=== PATIENT | male | born 1955 | race Caucasian/White ===

== ENCOUNTER → 2018-05-20 09:16 | Outpatient (CLI) | payer BC, SELFPAY ==
[2018-05-20 11:12] LABS: Alanine Aminotransferase 36 IU/L (21-72); Albumin 4.2 g/dL (3.5-5.0); Albumin Globulin Ratio 1.4 (1.0-2.8); Alkaline Phosphatase 77 U/L (38-126); Aspartate Aminotransferase 35 IU/L (17-59); BUN Creatinine Ratio 19.2 (6-22); Bilirubin Total 0.9 mg/dL (0.2-1.3); Blood Urea Nitrogen 25 mg/dL (9-20); Calcium 9.3 mg/dL (8.4-10.2); Carbon Dioxide 29 mmol/L (22-32); Chloride 100 mmol/L (98-107); Estimated Glomerular Filt Rate 55.9 mL/min (>60); Globulin 2.9 g/dL (1.7-4.1); Glucose 110 mg/dL (80-110); HEMOLYSIS < 15 (0-50); Potassium 3.9 mmol/L (3.4-5.1); Sodium 138 mmol/L (137-145); Total Protein 7.1 g/dL (6.3-8.2)
[2018-05-23 09:45] LABS: Lipoprofile NMR SEE SEPARATE REPORTS
== END ==
PROVIDERS: PCP Family Medicine; Visit Provider Specialist
DX: E78.2 Mixed hyperlipidemia (principal)
CPT/HCPCS: 36415; 80053; 83704

== ENCOUNTER → 2018-05-22 12:31 | Outpatient (CLI) | payer BC, SELFPAY ==
--- NOTE | 2018-05-22 | DI.ECHO.S_ITS ---
[facility]---------[facility] +---------+ : : [address] : : : : [id number] : : : : Phone: [phone]+ Echocardiogram Report + + :Name: KATHIE RILEY Study Date: 05/22/2018 Height: 66 in : :[facility] Weight: 196 lb : : Gender: Male BSA: 2.0 m2 : :: 1955 Age: 63 yrs BP: 110/82 mmHg: :Reason For Study: Aortic valve replacement - bioprosthetic : :Ordering Physician: Emre : :Jaun Performed By: Domi Srivastava : :Referring: Jayla Ma : + + Interpretation Summary 1) Normal left ventricular thickness, size, and systolic function (EF 60-65%). 2) Grossly, normal right ventricular size and function. 3) There is a bioprosthetic aortic valve that is well-seated and opens well. Mean gradient is 21.5mmHg, mildly higher that 15mmHg noted on 2017 echo. 4) Compared to the Echo done 09/26/2017, mean gradient across the bioprosthetic aortic valve is mildly higher but still acceptable for this valve. Procedure: A two-dimensional transthoracic echocardiogram with color flow and Doppler was performed. The study quality was technically adequate. Comparison is made with the echocardiogram of 09-26-17. The patient was in normal sinus rhythm during the exam. Left Ventricle: The left ventricle is normal in size. Proximal septal thickening is noted. The ejection fraction is estimated to be 60-65%. Left ventricular systolic function is normal. Septal motion is consistent with post-operative state. Assessment of diastolic parameters indicates normal left ventricular diastolic function and normal filling pressures. Right Ventricle: The right ventricle grossly appears normal in size with probable normal systolic function. Atria: The left atrial size is normal. Right atrial size is normal. The interatrial septum is intact with no evidence for an atrial septal defect. Mitral Valve: The mitral valve is grossly normal. There is no mitral regurgitation noted. Aortic Valve: There is a porcine aortic valve. The prosthetic aortic valve is well-seated. Mean gradient is 23mmHg. The prosthetic aortic valve appears to open well. There is mild aortic regurgitation. Tricuspid Valve: The tricuspid valve is normal in structure but is abnormal in function. There is trace tricuspid regurgitation. The right ventricular systolic pressure is estimated at 24 mmHg assuming a right atrial pressure of 3 mm Hg. Pulmonic Valve: The pulmonic valve is not well seen, but is grossly normal. There is no pulmonic valvular regurgitation. Great Vessels: The aortic root is normal size. The ascending aorta is mildly enlarged. The aortic arch is at the upper limits of normal in size. The IVC is of normal diameter and collapses greater than 50% with a sniff. This suggests a low right atrial pressure of 3 mm Hg. Pericardium/ Pleura There is no pericardial effusion. There is no pleural effusion. MMode/2D Measurements & Calculations LVIDd: 4.6 cm LVOT diam: 1.9 cm LVIDs: 3.3 cm Ao root diam: 3.0 cm FS: 29.9 % Aortic Jxn: 2.1 cm EPSS: 0.30 cm asc Aorta Diam: 3.7 cm IVSd: 1.0 cm Ao Arch Diam (Prox Trans): 3.0 cm LVPWd: 0.93 cm LV hernández. diameter/BSA (cm/m^2): 2.3 LV sys. diameter/BSA (cm/m^2): 1.6 LA dimension: 3.9 cm RA long axis: 4.7 cm LA A2 area: 14.9 cm2 RA area: 15.3 cm2 LA A4 area: 15.8 cm2 RA vol: 43.0 ml LA length (vol): 5.1 cm RA : 21.7 ml/m2 LA vol: 39.2 ml IVC diam: 1.4 cm LA vol index: 19.8 ml/m2 RVDd major: 5.4 cm RVD1 (basal): 3.5 cm RVD2 (mid): 2.8 cm Doppler Measurements & Calculations Ao V2 max: 309.1 cm/sec LVOT Max Wali: 107.7 cm/sec Ao V2 mean: 223.8 cm/sec LV V1 max P.6 mmHg Ao max P.2 mmHg LV V1 VTI: 21.3 cm Ao mean P.5 mmHg ERFEN(I,D): 0.98 cm2 Ao V2 VTI: 60.8 cm EFREN(V,D): 0.98 cm2 sev ratio: 0.35 EFREN indexed to BSA (cm^2/m^2): 0.49 MV E max wali: 69.8 cm/sec TR max wali: 228.6 cm/sec MV A max wali: 80.8 cm/sec TR max P.9 mmHg MV E/A: 0.86 PA V2 max: 91.0 cm/sec Med Peak E' Wali: 6.0 cm/sec PA V2 mean: 60.9 cm/sec E/E' med: 11.6 PA mean P.7 mmHg Lat Peak E' Wali: 7.7 cm/sec PA Accel Time: 0.10 sec E/E' lat: 9.1 E/e' average: 10.4 MV dec time: 0.20 sec MV P1/2t: 59.2 msec MV P1/2t max wali: 69.5 cm/sec MVA(P1/2t): 3.7 cm2 Reading Physician:12:28 PM
== END ==
PROVIDERS: PCP Family Medicine; Visit Provider Specialist
DX: I35.1 Nonrheumatic aortic (valve) insufficiency (principal); Z95.2 Presence of prosthetic heart valve
CPT/HCPCS: 93306

== ENCOUNTER 2018-09-11 13:05 | Emergency (ER) | payer BC, SELFPAY ==
[2018-09-11 13:09] VITALS: BP 156/101; PULSE 82; RESP 14; TEMP 36.4; O2SAT 99
--- NOTE | 2018-09-11 13:17 | DI.US.S_ITS ---
PROCEDURE: US PERIPH VENOUS LOW EXTREM LT INDICATIONS: Pain Left Calf after surgery, Pt in ED wait- Can go to US TECHNIQUE: Real-time imaging, as well as color and pulse Doppler interrogation, were performed of the lower extremity deep veins from the inguinal ligament to the popliteal fossa. COMPARISON: None. FINDINGS: The deep veins are normally compressible, and free of intraluminal thrombus. Color and pulse Doppler demonstrate normal phasic intraluminal flow. There is normal augmentation response to distal compression maneuver. IMPRESSION: No visualized deep venous thrombosis. Dictated by: Melissa Ryder M.D. on 09/11/2018 at 14:53 Approved by: Melissa Ryder M.D. on 09/11/2018 at 14:53
[2018-09-11 13:46] VITALS: PULSE 70
--- NOTE | 2018-09-11 13:47 | ED.EXTPRO ---
HPI - Extremity Problem General Chief complaint: Extremity Problem,Nontraumatic Stated complaint: signs of clotting in calf after surgery Time Seen by Provider: 09/11/18 13:47 Source: patient Mode of arrival: ambulatory Limitations: no limitations History of Present Illness HPI Narrative: 63-year-old male who underwent a left medial compartment hemiarthroplasty of the left knee earlier this week at an outside facility. States that since then he has had swelling to his left calf muscle. No chest pain. No fevers. Has had some cramping left calf muscle. Patient has been ambulatory with crutches. Weightbearing as tolerated. Here for evaluation of possible DVT left lower extremity. Related Data Home Medications Medication Instructions Recorded Confirmed lisinopril 10 mg PO QDAY #0 02/19/17 carvedilol [Coreg] BID #0 09/17/17 hydrochlorothiazide 12.5 mg PO QDAY #0 09/17/17 Previous Rx's Medication Instructions Recorded tamsulosin [Flomax] 0.4 mg PO QDAY 5 Days #0 cap 09/17/17 ciprofloxacin HCl [Cipro] 500 mg PO BID #20 tab 02/03/18 metronidazole [Flagyl] 500 mg PO BID #10 tab 02/03/18 Allergies Allergy/AdvReac Type Severity Reaction Status Date / Time No Known Drug Allergies Allergy Verified 09/11/18 13:13 Review of Systems Constitutional Denies fever(s) Cardiovascular Denies chest pain and Denies dyspnea Respiratory Denies cough and Denies dyspnea Gastrointestinal Gastrointestinal: Denies abdominal pain Musculoskeletal Reports arthralgias (Left knee), Reports joint swelling (Left knee), Reports limited range of motion and Reports stiffness (Left knee) Integumentary/Breasts Comments: Surgical incision left knee covered with cervical bandage Neurologic Comments: No numbness or tingling left lower extremity PFSH Medical History Coronary artery disease (Acute) Hyperlipidemia (Acute) Hypertension (Acute) Surgical History H/O aortic valve replacement (Acute) History of arthroplasty of knee (Acute) Hx of CABG (Acute) Social History marital status: Smoking Status: Never smoker Exam Initial Vital Signs Initial Vital Signs: Vital Signs Temperature 97.6 F 09/11/18 13:09 Pulse Rate 82 09/11/18 13:09 Respiratory Rate 14 09/11/18 13:09 Blood Pressure 156/101 H 09/11/18 13:09 Pulse Oximetry 99 09/11/18 13:09 Const General: cooperative, healthy appearing, comfortable, well developed, well groomed and No acute distress Orientation: alert, awake and oriented x3 HENMT Head: normal to inspection and normocephalic Resp Effort & Inspection: normal respiratory effort Auscultation: clear to auscultation bilaterally Cardio Rate: regular rate Rhythm: regular rhythm Pulses: dorsalis pedis present on the left Skin Other: Surgical bandage located over left anterior knee consistent with his stated history. No surrounding erythema. Neuro Other: Sensation intact to light touch left lower extremity Extrem Other: Left hip unremarkable Limited range of motion left knee consistent with stated recent surgery Left ankle left foot unremarkable Mild swelling left calf. Course Orders Ordered: ED Orders 09/11/18 13:17 US perip venous low extrem lt Stat Vital Signs - 8 hr 09/11/18 13:09 09/11/18 13:46 09/11/18 14:25 Temperature 97.6 F Pulse Rate 82 77 Pulse Rate [Left Dorsalis Pedis] 70 Respiratory Rate 14 16 Blood Pressure 156/101 H Blood Pressure [Right Arm] 122/89 Pulse Oximetry 99 91 MDM - Extremity (Nontraumatic) Imaging Data Venous US: Radiologist's impression: PROCEDURE: US PERIP VENOUS LOW EXTREM LT INDICATIONS: Pain Left Calf after surgery, Pt in ED wait- Can go to US TECHNIQUE: Real-time imaging, as well as color and pulse Doppler interrogation, were performed of the lower extremity deep veins from the inguinal ligament to the popliteal fossa. COMPARISON: None. FINDINGS: The deep veins are normally compressible, and free of intraluminal thrombus. Color and pulse Doppler demonstrate normal phasic intraluminal flow. There is normal augmentation response to distal compression maneuver. IMPRESSION: No visualized deep venous thrombosis. Dictated by: Melissa Ryder M.D. on 09/11/2018 at 14:53 Approved by: Melissa Ryder M.D. on 09/11/2018 at 14:53 [facility] Narrative Medical decision making narrative: No signs of infection. Appropriate postoperative exam. No signs of DVT. Discussed all this with the patient. He is given return precautions. His is at bedside for these discussions. They expressed understanding and agreement with plan. Discharge Plan Departure Patient Disposition: Home Clinical Impression: Edema leg Instructions: How to Use an Elastic Bandage -- Edema Activity Restrictions/Additional Instructions: We had no findings today consistent with a clot in her lower extremity. There were no signs of infection. Continue all of your postoperative instructions given to you by your operative surgeon. Return to the emergency department for any new or worsening symptoms Prescriptions: No Action lisinopril 10 MG tablet 10 mg PO QDAY Qty: 0 RF: 0 hydrochlorothiazide 12.5 MG capsule 12.5 mg PO QDAY Qty: 0 RF: 0 carvedilol [Coreg] 12.5 MG tablet BID Qty: 0 RF: 0 tamsulosin [Flomax] 0.4 MG capsule,extended release 24hr 0.4 mg PO QDAY 5 Days Qty: 0 RF: 0 metronidazole [Flagyl] 500 MG tablet 500 mg PO BID Qty: 10 RF: 0 ciprofloxacin HCl [Cipro] 500 MG tablet 500 mg PO BID Qty: 20 RF: 0
[2018-09-11 14:25] VITALS: BP 122/89; PULSE 77; RESP 16; O2SAT 91
--- NOTE | 2018-09-11 14:26 | PC.NURSE ---
waiting for pending u/s reports. denies cp, shortness of breath. onset of left calf pain yesterday, denies injury trauma. s/p left knee partial replacement 2 days ago. denies fever,chills, coughing, vomiting. distal cms intact.
== END 2018-09-11 15:20 | disposition home or self-care (01) ==
PROVIDERS: Emergency Provider Emergency Medicine; Family Provider Orthopaedic Surgery; PCP Family Medicine
DX: R60.0 Localized edema (principal)
CPT/HCPCS: 93971; 99282; 99284

== ENCOUNTER → 2018-12-02 09:01 | Outpatient (CLI) | payer BC, SELFPAY ==
[2018-12-02 11:21] LABS: Alanine Aminotransferase 42 IU/L (21-72); Albumin 4.4 g/dL (3.5-5.0); Albumin Globulin Ratio 1.4 (1.0-2.8); Alkaline Phosphatase 80 U/L (38-126); Aspartate Aminotransferase 34 IU/L (17-59); Bilirubin Total 0.7 mg/dL (0.2-1.3); Blood Urea Nitrogen 28 mg/dL (9-20); Calcium 9.5 mg/dL (8.4-10.2); Carbon Dioxide 26 mmol/L (22-32); Chloride 101 mmol/L (98-107); Estimated Glomerular Filt Rate 51.4 mL/min (>60); Globulin 3.2 g/dL (1.7-4.1); Glucose 113 mg/dL (80-110); HEMOLYSIS < 15 (0-50); Potassium 3.9 mmol/L (3.4-5.1); Sodium 138 mmol/L (137-145); Total Protein 7.6 g/dL (6.3-8.2)
[2018-12-04 09:35] LABS: Lipoprofile NMR SEE SEPARATE REPORTS
== END ==
PROVIDERS: Family Provider Orthopaedic Surgery; PCP Family Medicine; Visit Provider Specialist
DX: E78.2 Mixed hyperlipidemia (principal); I10 Essential (primary) hypertension
CPT/HCPCS: 36415; 80053; 83704; 83735

== ENCOUNTER → 2019-08-28 08:42 | Outpatient (CLI) | payer BC, SELFPAY ==
[2019-08-28 10:42] LABS: Alanine Aminotransferase 25 IU/L (<50); Albumin 4.5 g/dL (3.5-5.0); Albumin Globulin Ratio 1.8 (1.0-2.8); Alkaline Phosphatase 69 U/L (38-126); Aspartate Aminotransferase 32 IU/L (17-59); BUN Creatinine Ratio 17.1 (6-22); Blood Urea Nitrogen 24 mg/dL (9-20); Calcium 9.9 mg/dL (8.4-10.2); Carbon Dioxide 26 mmol/L (22-32); Chloride 102 mmol/L (98-107); Estimated Glomerular Filt Rate 51.2 mL/min (>60); Globulin 2.5 g/dL (1.7-4.1); Glucose 105 mg/dL (80-110); HEMOLYSIS < 15 (0-50); Potassium 4.5 mmol/L (3.4-5.1); Sodium 138 mmol/L (137-145)
[2019-09-02 14:17] LABS: Lipoprofile NMR SEE SEPARATE REPORTS
== END ==
PROVIDERS: Specialist; PCP Family Medicine; Visit Provider Physician Assistant Medical
DX: E78.2 Mixed hyperlipidemia (principal)
CPT/HCPCS: 36415; 80053; 83704

== ENCOUNTER → 2020-07-16 09:29 | Outpatient (CLI) | payer BC, SELFPAY ==
[2020-07-16 10:39] LABS: Alanine Aminotransferase 17 IU/L (<50); Albumin 4.2 g/dL (3.5-5.0); Albumin Globulin Ratio 1.4 (1.0-2.8); Alkaline Phosphatase 69 U/L (38-126); Aspartate Aminotransferase 25 IU/L (17-59); BUN Creatinine Ratio 16.5 (6-22); Bilirubin Total 1.2 mg/dL (0.2-1.3); Blood Urea Nitrogen 22 mg/dL (9-20); Calcium 9.6 mg/dL (8.4-10.2); Carbon Dioxide 29 mmol/L (22-32); Chloride 104 mmol/L (98-107); Estimated Glomerular Filt Rate 54.1 mL/min (>60); Globulin 3.1 g/dL (1.7-4.1); Glucose 102 mg/dL (80-110); HEMOLYSIS < 15 (0-50); Magnesium 2.3 mg/dL (1.6-2.3); Potassium 4.4 mmol/L (3.4-5.1); Sodium 140 mmol/L (137-145); Total Protein 7.3 g/dL (6.3-8.2)
[2020-08-03 10:50] LABS: Cholesterol, Total 153; HDL-Cholesterol 47; HDL-Particle (Total) 27.9; LDL Particle 1016; LDL Size 20.7; LDL-Cholsterol 77; LP-IR Score 49; Small LDL- Particle 359; Triglycerides 169
== END ==
PROVIDERS: PCP Family Medicine; Referring Provider Specialist; Visit Provider Specialist
DX: I10 Essential (primary) hypertension (principal); E78.2 Mixed hyperlipidemia
CPT/HCPCS: 36415; 80053; 80061; 83704; 83735

== ENCOUNTER → 2020-07-19 13:37 | Outpatient (CLI) | payer BC, SELFPAY ==
--- NOTE | 2020-07-19 | DI.ECHO.S_ITS ---
[facility]---------+ [facility] +---------+ : : [address] : [address] : : : : [id number] : : : : Phone: [phone]+ Echocardiogram Report + + :Name: KATHIE RILEY Study Date: 07/19/2020 Height: 66 in : :[facility] Weight: 188 lb : : Gender: Male BSA: 1.9 m2 : :: 1955 Age: 65 yrs BP: 147/102 mmHg: :Reason For Study: XENOGENIC HEART VALVE : :Ordering Physician: LY, : :TRUONG Performed By: Michaelle Jesus : :Referring: TRUONG MODI : + + Interpretation Summary Left ventricular systolic function remains normal with an estimated ejection fraction of 60 to 65% without any focal wall motion abnormality. There is borderline concentric LVH which is less prominent compared to the previous study. There is a probable relaxation abnormality which is unchanged from the previous exam. The right ventricle appears normal and unchanged. Right ventricular systolic pressure cannot be estimated but CVP is likely 3 mmHg. Both atria are normal in size and unchanged from previous. There now is a suggestion of an atrial septal defect in the area of the septum secundum which was not evident on the previous exam. There is a bioprosthetic aortic valve that appears to be functioning normally, opening widely, with normal gradients and with trivial central regurgitation that is less prominent compared to the previous exam but otherwise appears unchanged from previous study. There is no other significant valvular abnormality. The ascending aorta is mildly enlarged. Procedure: A two-dimensional transthoracic echocardiogram with color flow and Doppler was performed. The study quality was technically adequate. Comparison is made with the echocardiogram of 05/22/2018. The patient had frequent PVCs during the exam. Left Ventricle: The left ventricle is normal in size. There is borderline concentric left ventricular hypertrophy. This is less prominent compared to the previous study. The ejection fraction is estimated to be 60-65%. Septal motion is consistent with post-operative state. Diastolic parameters suggest a relaxation abnormality of the left ventricle, consistent with probable normal filling pressures. Right Ventricle: The right ventricle is normal in size and function. This is unchanged compared to the previous study. Atria: Both atria are normal in size. This is unchanged compared to the previous study. There is no Doppler evidence for an interatrial shunt. Mitral Valve: The mitral valve is normal in structure and function. There is trace mitral regurgitation. Aortic Valve: There is a bioprosthetic aortic valve. The prosthetic aortic valve appears to open well. There is probable normal prosthetic aortic valve function. The aortic valve mean gradient is 17 mmHg. The peak aortic velocity is 2.8 m/sec. There is trace aortic regurgitation. Tricuspid Valve: The tricuspid valve is normal in structure and function. There is trace tricuspid regurgitation. Pulmonary artery pressures cannot be estimated because of the lack of a measurable TR jet velocity but the IVC suggests a CVP of around 3 mmHg. Pulmonic Valve: The pulmonic valve is not well seen, but is grossly normal. There is trace pulmonic regurgitation. There is no other significant valvular heart disease. Great Vessels: The aortic root is not well visualized. The ascending aorta is mildly enlarged. This is slightly smaller compared to the previous study. The IVC is of normal diameter and collapses greater than 50% with a sniff. This suggests a low right atrial pressure of 3 mm Hg. Pericardium/ Pleura There is no pericardial effusion. There is no pleural effusion. MMode/2D Measurements & Calculations LVIDd: 5.5 cm LVOT diam: 2.0 cm LVIDs: 3.5 cm asc Aorta Diam: 3.5 cm FS: 36.0 % EPSS: 0.22 cm IVSd: 1.1 cm LVPWd: 1.0 cm LV hernández. diameter/BSA (cm/m^2): 2.8 LV sys. diameter/BSA (cm/m^2): 1.8 LA A2 area: 16.2 cm2 RA long axis: 5.0 cm LA A4 area: 16.6 cm2 RA area: 16.4 cm2 LA length (vol): 5.1 cm RA vol: 45.4 ml LA vol: 44.5 ml RA : 23.3 ml/m2 LA vol index: 22.8 ml/m2 IVC diam: 1.4 cm RVD1 (basal): 3.5 cm TAPSE: 1.8 cm Doppler Measurements & Calculations Ao V2 max: 281.9 cm/sec LVOT Max Wali: 120.6 cm/sec Ao V2 mean: 193.3 cm/sec LV V1 max P.8 mmHg Ao max P.8 mmHg LV V1 VTI: 28.5 cm Ao mean P.9 mmHg EFREN(I,D): 1.5 cm2 Ao V2 VTI: 57.4 cm EFREN(V,D): 1.3 cm2 sev ratio: 0.50 EFREN indexed to BSA (cm^2/m^2): 0.80 MV E max wali: 72.8 cm/sec PA V2 max: 60.0 cm/sec MV A max wali: 85.2 cm/sec PA V2 mean: 42.0 cm/sec MV E/A: 0.85 PA mean P.82 mmHg Med Peak E' Wali: 4.6 cm/sec PA pr(Accel): 27.6 mmHg E/E' med: 16.0 Lat Peak E' Wali: 8.4 cm/sec E/E' lat: 8.7 E/e' average: 12.3 MV dec time: 0.24 sec SV(LVOT): 88.9 ml Reading Physician:06:00 PM
== END ==
PROVIDERS: Referring Provider Specialist; Visit Provider Specialist
DX: I77.89 Other specified disorders of arteries and arterioles (principal); Z95.3 Presence of xenogenic heart valve
CPT/HCPCS: 93306

== ENCOUNTER → 2020-08-13 08:54 | Outpatient (CLI) | payer BC, SELFPAY ==
[2020-08-13 10:50] LABS: Prostate Specific Antigen 1.51 ng/mL (0.10-4.00)
== END ==
PROVIDERS: PCP Family Medicine; Referring Provider Family Medicine; Visit Provider Family Medicine
DX: N52.9 Male erectile dysfunction, unspecified (principal)
CPT/HCPCS: 36415; 84153

== ENCOUNTER → 2020-11-28 13:47 | Outpatient (CLI) | payer BC, SELFPAY ==
[2020-11-28 15:35] LABS: COVID19 -Nasal RAPID Negative (Negative)
== END ==
PROVIDERS: PCP Family Medicine; Visit Provider Physician Assistant
DX: Z01.812 Encounter for preprocedural laboratory examination (principal); Z20.822 Contact with and (suspected) exposure to COVID-19
CPT/HCPCS: 87635

== ENCOUNTER → 2021-08-14 08:52 | Outpatient (CLI) | payer MEDICARE, SELFPAY ==
[2021-08-14 10:36] LABS: Alanine Aminotransferase 26 IU/L (<50); Albumin 4.3 g/dL (3.5-5.0); Albumin Globulin Ratio 1.5 (1.0-2.8); Alkaline Phosphatase 68 U/L (38-126); Aspartate Aminotransferase 28 IU/L (17-59); BUN Creatinine Ratio 15.3 (6-22); Bilirubin Total 0.8 mg/dL (0.2-1.3); Blood Urea Nitrogen 22 mg/dL (9-20); Calcium 10.3 mg/dL (8.4-10.2); Carbon Dioxide 29 mmol/L (22-32); Chloride 102 mmol/L (98-107); Estimated Glomerular Filt Rate 49.2 mL/min (>60); Globulin 2.9 g/dL (1.7-4.1); Glucose 113 mg/dL (80-110); HEMOLYSIS < 15 (0-50); Potassium 4.5 mmol/L (3.4-5.1); Sodium 140 mmol/L (137-145); Total Protein 7.2 g/dL (6.3-8.2)
[2021-08-14 11:20] LABS: Thyroid Stimulating Hormone 2.02 uIU/mL (0.47-4.68)
[2021-08-16 08:12] LABS: Cholesterol, Total 179 mg/dL (100-199); HDL-Cholesterol 48 mg/dL (>39); HDL-Particle (Total) 32.9 umol/L (>=30.5); LDL Particle 1236 nmol/L (<1000); LDL Size 20.3 nm (>20.5); LDL-Cholsterol 88 mg/dL (0-99); LP-IR Score 81 (<=45); Small LDL- Particle 659 nmol/L (<=527); Triglycerides 260 mg/dL (0-149)
== END ==
PROVIDERS: PCP Family Medicine; Referring Provider Specialist; Visit Provider Specialist
DX: I10 Essential (primary) hypertension (principal); E78.2 Mixed hyperlipidemia
CPT/HCPCS: 36415; 80053; 80061; 83704; 83735; 84443

== ENCOUNTER → 2021-12-21 08:49 | Outpatient (CLI) | payer MEDICARE, SELFPAY ==
[2021-12-21 10:35] LABS: BUN Creatinine Ratio 15.3 (6-22); Blood Urea Nitrogen 21 mg/dL (9-20); Calcium 9.6 mg/dL (8.4-10.2); Carbon Dioxide 28 mmol/L (22-32); Chloride 104 mmol/L (98-107); Estimated Glomerular Filt Rate 52.1 mL/min (>60); Glucose 106 mg/dL (80-110); HEMOLYSIS < 15 (0-50); Potassium 4.4 mmol/L (3.4-5.1); Sodium 138 mmol/L (137-145)
[2021-12-21 11:00] LABS: Thyroid Stimulating Hormone 1.81 uIU/mL (0.47-4.68)
== END ==
PROVIDERS: PCP Family Medicine; Referring Provider Physician Assistant Medical; Visit Provider Specialist
DX: I10 Essential (primary) hypertension (principal)
CPT/HCPCS: 36415; 80048; 83735; 84443

== ENCOUNTER → 2022-03-12 07:05 | Outpatient (CLI) | payer MEDICARE, SELFPAY ==
[2022-03-12 08:21] LABS: Alanine Aminotransferase 30 IU/L (<50); Albumin 4.1 g/dL (3.5-5.0); Albumin Globulin Ratio 1.5 (1.0-2.8); Alkaline Phosphatase 64 U/L (38-126); Aspartate Aminotransferase 34 IU/L (17-59); BUN Creatinine Ratio 16.4 (6-22); Blood Urea Nitrogen 22 mg/dL (9-20); Carbon Dioxide 27 mmol/L (22-32); Chloride 106 mmol/L (98-107); Estimated Glomerular Filt Rate 59 mL/min (>60); Globulin 2.8 g/dL (1.7-4.1); Glucose 112 mg/dL (80-110); HEMOLYSIS < 15 (0-50); Magnesium 2.1 mg/dL (1.6-2.3); Potassium 4.1 mmol/L (3.4-5.1); Sodium 138 mmol/L (137-145); Total Protein 6.9 g/dL (6.3-8.2)
[2022-03-14 10:45] LABS: Cholesterol, Total 110 mg/dL (100-199); HDL-Cholesterol 40 mg/dL (>39); HDL-Particle (Total) 31.6 umol/L (>=30.5); LDL Particle 695 nmol/L (<1000); LDL Size 19.8 nm (>20.5); LDL-Cholsterol 44 mg/dL (0-99); LP-IR Score 59 (<=45); Small LDL- Particle 485 nmol/L (<=527); Triglycerides 153 mg/dL (0-149)
== END ==
PROVIDERS: PCP Family Medicine; Referring Provider Specialist; Visit Provider Specialist
DX: I49.3 Ventricular premature depolarization (principal); E78.2 Mixed hyperlipidemia
CPT/HCPCS: 36415; 80053; 80061; 83704; 83735

== ENCOUNTER → 2022-11-26 09:20 | Outpatient (CLI) | payer MEDICARE, SELFPAY ==
[2022-11-26 11:39] LABS: Alanine Aminotransferase 33 IU/L (<50); Albumin 3.9 g/dL (3.5-5.0); Albumin Globulin Ratio 1.4 (1.0-2.8); Alkaline Phosphatase 88 U/L (38-126); Aspartate Aminotransferase 31 IU/L (17-59); BUN Creatinine Ratio 18.3 (6-22); Bilirubin Total 1.1 mg/dL (0.2-1.3); Blood Urea Nitrogen 24 mg/dL (9-20); Carbon Dioxide 26 mmol/L (22-32); Chloride 102 mmol/L (98-107); Cholesterol 105 mg/dL (140-199); Estimated Glomerular Filt Rate > 60 mL/min (>60); Globulin 2.8 g/dL (1.7-4.1); Glucose 110 mg/dL (80-110); HDL Cholesterol 36 mg/dL (40-60); HEMOLYSIS < 15 (0-50); LDL Cholesterol Calculated 31 mg/dL (<100); Potassium 4.3 mmol/L (3.4-5.1); Sodium 137 mmol/L (137-145); Total Protein 6.7 g/dL (6.3-8.2); Triglycerides 190 mg/dL (35-150)
== END ==
PROVIDERS: PCP Family Medicine; Referring Provider Specialist; Visit Provider Specialist
DX: I10 Essential (primary) hypertension (principal); I25.10 Atherosclerotic heart disease of native coronary artery without angina pectoris; E78.2 Mixed hyperlipidemia
CPT/HCPCS: 36415; 80053; 80061; 83735

== ENCOUNTER 2023-04-28 17:13 | Emergency (ER) | payer MEDICARE, OTHER, SELFPAY ==
[2023-04-28 17:23] VITALS: BP 193/105; PULSE 64; RESP 16; TEMP 36.6; O2SAT 98; BMI 31.4
--- NOTE | 2023-04-28 17:47 | ED_ITS ---
HPI - Eye Problem <Nisreen Prince PA-C - Last Filed: 04/28/23 19:19> General Chief complaint: Eye Problems Stated complaint: Leye burning, bubble forming on eye T-0 Time Seen by Provider: 04/28/23 17:46 Source: patient Mode of arrival: Ambulatory History of Present Illness HPI Narrative: This is 67-year-old male with a history of seasonal allergies who presents with concern for left eye irritation itching pain and redness that began this afternoon. Patient states it began when he is watching TV he does not believe he got anything at all in his eye does not remember in the last few days getting anything in his eye either. He states it at 1st he thought it was allergies but then he and his are looking at his eye and noticed that there seemed to be some inflammation or swelling present on the nasal side of his left eye so they came in for further evaluation. Patient states he has a very mild headache for the last hour so but denies any vision change, pain with eye movements or any other symptoms whatsoever and states he has been in his usual state of health. He did try flushing his eye out about 4 times with an eye wash after his symptoms began and after the 4th time is when they noticed the inflammation. He denies any other complaints or concerns Related Data Home Medications Medication Instructions Recorded Confirmed lisinopril 10 mg tablet 10 mg PO QDAY ##0 02/19/17 08/08/20 carvedilol 12.5 mg tablet (Coreg) BID ##0 09/17/17 08/08/20 rosuvastatin 40 mg tablet (Crestor) 40 mg PO DAILY 09/17/18 08/08/20 aspirin 81 mg tablet,delayed 81 mg PO DAILY 08/08/20 08/08/20 release omeprazole 20 mg capsule,delayed 20 mg PO DAILY 08/08/20 08/08/20 release Previous Rx's Medication Instructions Recorded sildenafil 50 mg tablet (Viagra) 50 mg PO DAILY PRN sexual activity 08/08/20 #10 tabs Allergies Allergy/AdvReac Type Severity Reaction Status Date / Time No Known Drug Allergies Allergy Verified 09/17/18 15:51 Review of Systems <Nisreen Prince PA-C - Last Filed: 04/28/23 19:19> Review of Systems Narrative: See HPI Patient History <Nisreen Prince PA-C - Last Filed: 04/28/23 19:19> Medical History Coronary artery disease Coronary artery disease Erectile dysfunction Heart valve disorder Hyperlipidemia Hypertension Surgical History H/O aortic valve replacement History of arthroplasty of knee Hx of CABG Social History marital status: Smoking Status: Never smoker alcohol intake: current substance use type: former substance user and marijuana Smoking Status: Never smoker alcohol intake frequency: 0-2 drinks per day Substance Use Type: does not use Exam <Nisreen Prince PA-C - Last Filed: 04/28/23 19:19> Narrative Exam Narrative: GENERAL: [67] year old patient appears stated age. Well-developed patient, in mild distress. HEAD: Atraumatic. Normocephalic. There is no tenderness with palpation over the temples EYES: Pupils equal round and reactive. Extraocular motions intact. No scleral icterus. Left-side grossly injected, there are bilateral pinguecula more prominent on the left and slightly inflamed on the left affected eye. Ocular pressures are 14 on the right and 16 on the left. Fluorescein exam of the left eye does not reveal any corneal abrasion or fluorescein uptake. There is no tenderness or inflammation of the eyelids, no drainage noted. ENT: Nose without bleeding, purulent drainage. Throat without erythema, tonsillar hypertrophy or exudate. Airway patent. NECK: Trachea midline. Non tender CARDIOVASCULAR: Regular rate and rhythm without murmurs, gallops, or rubs. RESPIRATORY: No increased work of breathing respiratory distress EXTREMITIES: Moving all extremities normal gait NEURO: AOx3. SKIN: No rash or erythema of visible areas Initial Vital Signs Initial Vital Signs: Vital Signs Temperature 97.9 F 04/28/23 17:23 Pulse Rate 64 04/28/23 17:23 Respiratory Rate 16 04/28/23 17:23 Blood Pressure 193/105 H 04/28/23 17:23 Pulse Oximetry 98 04/28/23 17:23 Oxygen Delivery Method Room Air 04/28/23 17:23 <Mik Panchal DO - Last Filed: 04/28/23 21:08> Initial Vital Signs Initial Vital Signs: Vital Signs Temperature 97.9 F 04/28/23 17:23 Pulse Rate 64 04/28/23 17:23 Respiratory Rate 16 04/28/23 17:23 Blood Pressure 193/105 H 04/28/23 17:23 Pulse Oximetry 98 04/28/23 17:23 Oxygen Delivery Method Room Air 04/28/23 17:23 Course <Nisreen Prince PA-C - Last Filed: 04/28/23 19:19> Orders Ordered: Discontinued Medications Fluorescein Sodium (Fluorescein 1 Mg Strip) 1 mg EYE-BOTH NOW ONE Stop: 04/28/23 17:51 Last Admin: 04/28/23 17:58 Dose: 1 mg Documented By: RB Ofloxacin (Ofloxacin 0.3% Ophth Prepack) 1 bottle MISC SEEINSTR ONE Stop: 04/28/23 18:36 Last Admin: 04/28/23 18:54 Dose: 5 ml Documented By: RB Proparacaine HCl (Proparacaine 0.5% Ophth Safia) 1 drops EYE-BOTH NOW ONE Stop: 04/28/23 17:48 Last Admin: 04/28/23 17:57 Dose: 1 drop Documented By: RB Vital Signs Vital signs: Vital Signs - 8 hr 04/28/23 17:23 04/28/23 19:05 Temperature 97.9 F 97.9 F Pulse Rate 64 82 Respiratory Rate 16 17 Blood Pressure 193/105 H 178/86 H Pulse Oximetry 98 96 Oxygen Delivery Method Room Air Room Air <Mik Panchal DO - Last Filed: 04/28/23 21:08> Orders Ordered: Discontinued Medications Fluorescein Sodium (Fluorescein 1 Mg Strip) 1 mg EYE-BOTH NOW ONE Stop: 04/28/23 17:51 Last Admin: 04/28/23 17:58 Dose: 1 mg Documented By: RB Ofloxacin (Ofloxacin 0.3% Ophth Prepack) 1 bottle MISC SEEINSTR ONE Stop: 04/28/23 18:36 Last Admin: 04/28/23 18:54 Dose: 5 ml Documented By: RB Proparacaine HCl (Proparacaine 0.5% Ophth Safia) 1 drops EYE-BOTH NOW ONE Stop: 04/28/23 17:48 Last Admin: 04/28/23 17:57 Dose: 1 drop Documented By: RB Vital Signs Vital signs: Vital Signs - 8 hr 04/28/23 17:23 04/28/23 19:05 Temperature 97.9 F 97.9 F Pulse Rate 64 82 Respiratory Rate 16 17 Blood Pressure 193/105 H 178/86 H Pulse Oximetry 98 96 Oxygen Delivery Method Room Air Room Air MDM - Eye Problem <Nisreen Prince PA-C - Last Filed: 04/28/23 19:19> Differential Diagnosis Differential diagnosis: Likely conjunctivitis (Bacterial) Medical Records Attestation: I reviewed the patient's medical records. Treatment and disposition Shared decision making:: Shared decision-making was used in determining patient's plan of care and plan for outpatient follow-up. MDM Narrative Medical decision making narrative: This is a generally well-appearing 67-year-old male with a history of hypertension hyperlipidemia and CAD presents with concern for left eye pain irritation and itching. Primary symptom is eye itching and irritation came in due to concern for inflammation/swelling of the eye adjacent to the iris on the nasal side. Exam today is consistent with bilateral pinguecula which is the location of patient's concern for swelling, the left pinguecula is notably more prominent/slightly inflamed as compared to the right. Patient does have erythema and irritation of the left eye and some mild edema present of the nasal aspect, a fluorescein exam is performed after instillation of proparacaine and there is no evidence of corneal abrasion, ocular pressures are unremarkable and equal bilaterally. I have low concern for intracranial process in this patient, also low concern for arteritis as he has no tenderness over his temporal. 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 Return precautions provided, follow-up plan discussed, all questions answered. Discharge Plan Departure Patient Disposition: Home Clinical Impression: Acute bacterial conjunctivitis of left eye Activity Restrictions/Additional Instructions: *You have been diagnosed with acute bacterial conjunctivitis *What to do: *Please continue to take your regular medications as directed. [] New medication prescriptions sent to your pharmacy: [Ofloxacin eyedrops were provided for you in the emergency department you can continue to use these drops in your left eye for the next 7 days every 6 hours] [ ] New medication written as a paper prescription [X ] No new medications given *Please follow up with your primary care provider in 2-3 days, call for an appointment. Let them know you were seen in the Emergency Department and that we ask that you be seen in follow up. We will electronically transmit a record of today's note if your PCP is in our system. We did an eye exam today to evaluate your left eye pain and irritation and redness. Your ocular pressures were in the normal range, you did not have evidence of a corneal abrasion but ear exam is consistent with a bacterial conjunctivitis and I think that you should use the antibiotic eyedrops as prescribed (see above--use the antibiotic drops provided from the emergency department). Of course if you have new or worsening symptoms do not hesitate to be re-evaluated. *If you do not have a primary care provider please contact the [facility] Resource line at [phone]. They will ask some questions about your medical history and help get you set up with a doctor in the community. *Return to Emergency Department if you should have any new, worsening or concerning symptoms, such as [fever greater than 101 F, shaking chills, worsening pain, persistent vomiting or other bothersome symptoms] Prescriptions: No Action rosuvastatin [Crestor] 40 mg tablet 40 mg PO DAILY lisinopril 10 MG tablet 10 mg PO QDAY Qty: 0 carvedilol [Coreg] 12.5 MG tablet BID Qty: 0 aspirin 81 mg tablet,delayed release (DR/EC) 81 mg PO DAILY omeprazole 20 mg capsule,delayed release(DR/EC) 20 mg PO DAILY sildenafil [Viagra] 50 mg tablet 50 mg PO DAILY PRN (Reason: sexual activity) Qty: 10 2RF Rx Instructions: administer 30 minutes to 4 hours before activity Referrals: Mikey Villegas DO [Primary Care Provider] - Stand Alone Forms: Patient Portal/API <Mik Panchal DO - Last Filed: 04/28/23 21:08> Cosign ED Attending Cosignature Attestation: Dr Panchal Co-Sign Statement: I was available for consultation during this patient's emergency department visit. This chart is signed by myself for administrative purposes only. I did not have direct contact with this patient during this visit. They were seen independently by the APC.
[2023-04-28] MEDS: PROPARACAINE 0.5% OPHTH SOL 1 DROPS EYE-BOTH (17:57)
[2023-04-28] MEDS: FLUORESCEIN 1 MG STRIP EYE-BOTH (17:58)
[2023-04-28] MEDS: OFLOXACIN 0.3% OPHTH PREPACK 1 BOTTLE MISC (18:54)
[2023-04-28 19:05] VITALS: BP 178/86; PULSE 82; RESP 17; TEMP 36.6; O2SAT 96
== END 2023-04-28 19:06 | disposition home or self-care (01) ==
PROVIDERS: Emergency Provider Student in an Organized Health Care Education/Training Program; PCP Family Medicine
DX: H10.32 Unspecified acute conjunctivitis, left eye (principal)
CPT/HCPCS: 99282

== ENCOUNTER → 2023-07-22 08:50 | Outpatient (CLI) | payer MEDICARE, OTHER, SELFPAY ==
[2023-07-22 10:22] LABS: Alanine Aminotransferase 26 IU/L (<50); Albumin 3.9 g/dL (3.5-5.0); Albumin Globulin Ratio 1.5 (1.0-2.8); Alkaline Phosphatase 77 U/L (38-126); Aspartate Aminotransferase 24 IU/L (17-59); Bilirubin Total 0.9 mg/dL (0.2-1.3); Blood Urea Nitrogen 19 mg/dL (9-20); Calcium 9.7 mg/dL (8.4-10.2); Carbon Dioxide 26 mmol/L (22-32); Chloride 105 mmol/L (98-107); Estimated Glomerular Filt Rate 57 mL/min (>60); Globulin 2.6 g/dL (1.7-4.1); Glucose 121 mg/dL (80-110); HEMOLYSIS < 15 (0-50); Magnesium 2.1 mg/dL (1.6-2.3); Potassium 4.4 mmol/L (3.4-5.1); Sodium 137 mmol/L (137-145); Total Protein 6.5 g/dL (6.3-8.2)
[2023-07-24 10:31] LABS: Cholesterol, Total 121 mg/dL (100-199); HDL-Cholesterol 44 mg/dL (>39); HDL-Particle (Total) 33.2 umol/L (>=30.5); LDL Particle 714 nmol/L (<1000); LDL Size 19.7 nm (>20.5); LDL-Cholsterol 53 mg/dL (0-99); LP-IR Score 56 (<=45); Small LDL- Particle 522 nmol/L (<=527); Triglycerides 139 mg/dL (0-149)
== END ==
PROVIDERS: PCP Family Medicine; Referring Provider Specialist; Visit Provider Specialist
DX: I10 Essential (primary) hypertension (principal); E78.2 Mixed hyperlipidemia
CPT/HCPCS: 36415; 80053; 80061; 83704; 83735

== ENCOUNTER → 2024-01-14 08:57 | Outpatient (CLI) | payer MEDICARE, OTHER, SELFPAY ==
[2024-01-14 10:40] LABS: BUN Creatinine Ratio 19.4 (6-22); Blood Urea Nitrogen 26 mg/dL (9-20); Calcium 9.6 mg/dL (8.4-10.2); Carbon Dioxide 30 mmol/L (22-32); Chloride 104 mmol/L (98-107); Estimated Glomerular Filt Rate 58 mL/min (>60); Glucose 122 mg/dL (80-110); HEMOLYSIS < 15 (0-50); Magnesium 2.1 mg/dL (1.6-2.3); Potassium 4.2 mmol/L (3.4-5.1); Sodium 138 mmol/L (137-145)
== END ==
LOC: LAB 08:59
PROVIDERS: PCP Family Medicine; Referring Provider Specialist; Visit Provider Specialist
DX: I10 Essential (primary) hypertension (principal)
CPT/HCPCS: 36415; 80048; 83735

== ENCOUNTER → 2024-03-26 08:07 | Outpatient (CLI) | payer MEDICARE, OTHER, SELFPAY ==
[2024-03-26 09:32] LABS: Alanine Aminotransferase 41 IU/L (<50); Albumin 4.1 g/dL (3.5-5.0); Albumin Globulin Ratio 1.8 (1.0-2.8); Alkaline Phosphatase 79 U/L (38-126); Aspartate Aminotransferase 40 IU/L (17-59); Calcium 9.1 mg/dL (8.4-10.2); Carbon Dioxide 27 mmol/L (22-32); Chloride 106 mmol/L (98-107); Cholesterol 121 mg/dL (140-199); Globulin 2.3 g/dL (1.7-4.1); Glucose 134 mg/dL (80-110); HDL Cholesterol 43 mg/dL (40-60); HEMOLYSIS < 15 (0-50); LDL Cholesterol Calculated 37 mg/dL (<100); Magnesium 2.2 mg/dL (1.6-2.3); Potassium 4.2 mmol/L (3.4-5.1); Sodium 138 mmol/L (137-145); Total Protein 6.4 g/dL (6.3-8.2); Triglycerides 205 mg/dL (35-150)
[2024-03-26 09:34] LABS: BUN Creatinine Ratio 18.8 (6-22); Bilirubin Total 1.1 mg/dL (0.2-1.3); Blood Urea Nitrogen 25 mg/dL (9-20); Estimated Glomerular Filt Rate 59 mL/min (>60)
== END ==
PROVIDERS: PCP Family Medicine; Referring Provider Specialist; Visit Provider Specialist
DX: I10 Essential (primary) hypertension (principal); E78.2 Mixed hyperlipidemia
CPT/HCPCS: 36415; 80053; 80061; 83735

== ENCOUNTER → 2025-02-22 08:07 | Outpatient (CLI) | payer MEDICARE, OTHER, SELFPAY ==
--- NOTE | 2025-02-22 08:09 | DI.ECHO.S_ITS ---
[facility]+ [facility] : : [address] : : [place] : : [id number] : : Phone: [phone] Echocardiogram Report + + :Name: KATHIE RILEY Study Date: 02/22/2025 Height: 66 in : :Hospital ReadingLocation: Weight: 195 lb : : Gender: Male BSA: 2.0 m2 : :: 1955 Age: 69 yrs BP: 122/80 mmHg: :Reason For Study: LEFT BUNDLE BRANCH BLOCK, AORTIC VALVE : :REPLACEMENT, CORONARY ARTERY DISEASE : :Ordering Physician: LY, : :TRUONG Performed By: Michaelle Jesus : :Referring: TRUONG MODI : + + Interpretation Summary Left ventricular systolic function remains normal with an estimated ejection fraction of 60 to 65% without focal abnormality except for paradoxical septal motion, consistent with previous surgery. There is mild LVH with a probable diastolic relaxation abnormality and normal filling pressures, but likely unchanged from the previous study. The right ventricle remains borderline enlarged with probable normal systolic function and appears unchanged from previous study. Right ventricular systolic pressure cannot be estimated but CVP is likely around 3 mmHg. Both atria remain normal in size and unchanged. There is trivial mitral regurgitation, improved since the previous exam, and mild, unchanged tricuspid regurgitation. There is a bioprosthetic aortic valve that is not well-seen but appears to be functioning normally with a peak velocity of 3.3 m/s and a mean gradient of 28 mmHg compared to 3.4 m/s and 26 mmHg, respectively, on the previous exam. The severity ratio has improved slightly from 0.39 up to 0.42. The proximal aorta remains mildly enlarged but unchanged from the previous exam. Procedure: A two-dimensional transthoracic echocardiogram with color flow and Doppler was performed. The study quality was technically adequate. Comparison is made with the echocardiogram of 07/30/2023. The patient was in sinus bradycardia with heart rates between 56-62 bpm during the exam. Left Ventricle: The left ventricle is normal in size. Proximal septal thickening is noted. There is mild concentric left ventricular hypertrophy. Left ventricular systolic function appears normal without focal wall motion abnormalities. The ejection fraction is estimated to be 60-65%. Septal motion is consistent with post-operative state. Diastolic parameters suggest a relaxation abnormality of the left ventricle, consistent with probable normal filling pressures. Right Ventricle: The right ventricle is at the upper limits of normal in size. The right ventricular systolic function is normal. This is unchanged compared to the previous study. Atria: Both atria are normal in size. There is no Doppler evidence for an interatrial shunt. Mitral Valve: There is mild mitral annular calcification. The mitral valve leaflets are slightly calcified. There is trace mitral regurgitation. This is less prominent compared to the previous study. Aortic Valve: There is a prosthetic aortic valve. The prosthetic aortic valve is well-seated. The peak aortic velocity is 3.3 m/sec. The peak aortic velocity on the previous exam was 3.4 m/sec. The aortic valve mean gradient is 28 mmHg compared to the previous 26 mmHg. The calculated aortic valve area is 1.1 cm2. The severity ratio has increased slightly from 0.39-0.42. There is trace aortic regurgitation. Tricuspid Valve: The tricuspid valve leaflets are thin and pliable. There is mild tricuspid regurgitation. This is unchanged compared to the previous study. Pulmonary artery pressures cannot be estimated because of the lack of a measurable TR jet velocity but the IVC suggests a CVP of around 3 mmHg. Pulmonic Valve: The pulmonic valve leaflets are thin and pliable; valve motion is normal. There is no other significant valvular heart disease. Great Vessels: The aortic root is normal size. The ascending aorta is mildly enlarged. This is unchanged compared to the previous study. The aortic arch is at the upper limits of normal in size. The IVC is of normal diameter and collapses greater than 50% with a sniff. This suggests a low right atrial pressure of 3 mm Hg. Pericardium/ Pleura There is no pericardial effusion. There is no pleural effusion. MMode/2D Measurements & Calculations LVIDd: 4.3 cm LVOT diam: 2.0 cm LVIDs: 3.0 cm asc Aorta Diam: 3.6 cm FS: 30.4 % Ao Arch Diam (Prox Trans): 3.0 cm IVSd: 1.4 cm LVPWd: 1.1 cm LV hernández. diameter/BSA (cm/m^2): 2.2 LV sys. diameter/BSA (cm/m^2): 1.5 LA A2 area: 15.4 cm2 RA long axis: 5.3 cm LA A4 area: 15.6 cm2 RA area: 15.8 cm2 LA length (vol): 5.1 cm RA vol: 39.9 ml LA vol: 39.7 ml RA : 20.1 ml/m2 LA vol index: 20.1 ml/m2 IVC diam: 1.4 cm RVD1 (basal): 4.2 cm RVD2 (mid): 3.0 cm TAPSE: 1.7 cm Doppler Measurements & Calculations Ao V2 max: 326.1 cm/sec LVOT Max Wali: 119.7 cm/sec Ao V2 mean: 239.1 cm/sec LV V1 max P.7 mmHg Ao max P.7 mmHg LV V1 VTI: 30.9 cm Ao mean P.6 mmHg EFREN(I,D): 1.3 cm2 Ao V2 VTI: 72.8 cm EFREN(V,D): 1.1 cm2 sev ratio: 0.42 EFREN indexed to BSA (cm^2/m^2): 0.66 MV E max wali: 73.1 cm/sec PA V2 max: 108.0 cm/sec MV A max wali: 76.2 cm/sec PA V2 mean: 69.3 cm/sec MV E/A: 0.96 PA mean P.2 mmHg Med Peak E' Wali: 5.8 cm/sec PA pr(Accel): 23.3 mmHg E/E' med: 12.5 Lat Peak E' Wali: 6.3 cm/sec E/E' lat: 11.5 E/e' average: 12.0 MV dec time: 0.21 sec SV(LVOT): 95.2 ml Reading Physician:12:30 PM
== END ==
PROVIDERS: PCP Family Medicine; Referring Provider Specialist; Visit Provider Specialist
DX: I07.1 Rheumatic tricuspid insufficiency (principal); I44.7 Left bundle-branch block, unspecified; I25.10 Atherosclerotic heart disease of native coronary artery without angina pectoris; I77.89 Other specified disorders of arteries and arterioles; Z95.2 Presence of prosthetic heart valve
CPT/HCPCS: 93306

== ENCOUNTER → 2025-02-26 08:43 | Outpatient (CLI) | payer MEDICARE, OTHER, SELFPAY ==
[2025-02-26 09:24] LABS: Hematocrit 46.3 % (41-53); Mean Corpuscular HGB Conc 34.5 % (30-36); Mean Corpuscular Hemoglobin 30.2 PG (26-34); Mean Corpuscular Volume 87.5 fL (80-100); Platelet Count 195 X10^3/uL (150-400); Red Blood Cell Count 5.29 X10^6/uL (4.5-5.9); White Blood Cell Count 5.9 X10^3/uL (4.5-11.0)
[2025-02-26 09:58] LABS: Alanine Aminotransferase 27 IU/L (<50); Albumin 4.1 g/dL (3.5-5.0); Albumin Globulin Ratio 1.7 (1.0-2.8); Alkaline Phosphatase 73 U/L (38-126); Aspartate Aminotransferase 30 IU/L (17-59); BUN Creatinine Ratio 19.1 (6-22); Bilirubin Total 1.2 mg/dL (0.2-1.3); Blood Urea Nitrogen 27 mg/dL (9-20); Calcium 9.3 mg/dL (8.4-10.2); Carbon Dioxide 27 mmol/L (22-32); Chloride 103 mmol/L (98-107); Estimated Glomerular Filt Rate 54 mL/min (>60); Globulin 2.4 g/dL (1.7-4.1); Glucose 125 mg/dL (70-99); HEMOLYSIS < 15 (0-50); Magnesium 2.1 mg/dL (1.6-2.3); Potassium 4.1 mmol/L (3.4-5.1); Sodium 137 mmol/L (137-145); Total Protein 6.5 g/dL (6.3-8.2)
== END ==
LOC: LAB 08:47
PROVIDERS: PCP Family Medicine; Referring Provider Specialist; Visit Provider Specialist
DX: I35.0 Nonrheumatic aortic (valve) stenosis (principal); I10 Essential (primary) hypertension; E78.2 Mixed hyperlipidemia
CPT/HCPCS: 36415; 80053; 80061; 83704; 83735; 85027